=== PATIENT | male | born 1990 | race African-American/Black ===

== ENCOUNTER 2019-07-02 20:10 | Emergency (ER) | payer SELFPAY ==
[~2019-07-02] VITALS: Ht 185.4 cm; Wt 96.9 kg
--- NOTE | 2019-07-02 20:37 | NUR ---
THIS IS A 29Y M THAT COMES IN TONIGHT FOR "ACID FEELING IN MY THROAT AND I HAVE A COUGH." PT STS HE HAS TRAVELED TO [facility] AND [facility]. PT STS HE SMOKES A LOT OF CIGARS AND HAS DONE SO FOR A PERIOD OF TIME. PT STS NOW HE IS CONCERNED ABOUT PERES AFTER SPEAKING WITH HIS FRIEND. PT CONNECTED TO MONITORING, DEBORAH RONQUILLO
[2019-07-02 20:38] VITALS: BP 113/70
--- NOTE | 2019-07-02 20:40 | NUR ---
xray at bedside
== END 2019-07-02 21:30 | disposition home or self-care (01) ==
LOC: ED 20:50
DX: R05 Cough (principal); F17.210 Nicotine dependence, cigarettes, uncomplicated
CPT/HCPCS: 71045; 99406